=== PATIENT | male | born 1985 | race Caucasian/White ===

== ENCOUNTER 2016-10-31 22:30 | Emergency (ER) | payer OTHER ==
[2016-10-31 22:38] VITALS: BP 146/89; PULSE 65; RESP 16; TEMP 97.3; O2SAT 95
[2016-10-31] MEDS ORDERED: RABIES VACC, HUMAN DIPLOID/PF 2.5 UNIT VIAL (RABAVERT) IM ONE (22:44)
[2016-10-31] MEDS ORDERED: RABIES IMMUNE GLOBULIN 300 UNIT/2 ML VIAL IM ONE (22:44)
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
[2016-10-31] MEDS ORDERED: RABIES IMMUNE GLOBULIN 150 UNIT/ML 10 ML VIAL IM ONE (23:30)
== END 2016-11-01 00:10 | disposition home or self-care (01) ==
DX: Z20.3 Contact with and (suspected) exposure to rabies (principal); Z23 Encounter for immunization

== ENCOUNTER 2018-08-19 22:07 | Emergency (ER) | payer OTHER ==
[2018-08-19 22:11] VITALS: BP 147/86
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
== END 2018-08-19 22:39 | disposition home or self-care (01) ==
DX: S60.512A Abrasion of left hand, initial encounter (principal); S80.811A Abrasion, right lower leg, initial encounter; S80.211A Abrasion, right knee, initial encounter; Y04.8XXA Assault by other bodily force, initial encounter; Y99.0 Civilian activity done for income or pay